=== PATIENT | female | born 1995 ===

== ENCOUNTER 2019-01-29 12:45 | Emergency (ER) | payer SELFPAY ==
--- NOTE | 2019-01-29 13:37 | EDPHYS ---
Physician Documentation [facility] Name: Diana Wayne Age: 23 yrs Sex: Female : 1995 Arrival Date: 01/29/2019 Time: 12:51 Bed 6 Private MD: Unknown, Unknown ED Physician Jefry Cano HPI: 01/29 13:33 This 23 yrs old Female presents to ER via Ambulatory with complaints of Cough, laci Chest Pain, Sore Throat. 13:33 The patient or guardian reports cough, flu symptoms, arthralgias, low-grade fever, laci myalgias. Onset: The symptoms/episode began/occurred 3 day(s) ago. Severity of symptoms: At their worst the symptoms were mild, in the emergency department the symptoms are unchanged. Modifying factors: The symptoms are alleviated by nothing, the symptoms are aggravated by nothing. Associated signs and symptoms: The patient has no apparent associated signs or symptoms. The patient has not experienced similar symptoms in the past. 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 - Ebola Screening: : No symptoms or risks identified at this time. - Social history:: Smoking status: Patient/guardian denies using tobacco. ROS: 13:34 Eyes: Negative for injury, pain, redness, and discharge, ENT: Negative for injury, laci pain, and discharge, Neck: Negative for injury, pain, and swelling, Cardiovascular: Negative for chest pain, palpitations, and edema, Abdomen/GI: Negative for abdominal pain, nausea, vomiting, diarrhea, and constipation, Back: Negative for injury and pain, : Negative for injury, bleeding, discharge, and swelling, MS/Extremity: Negative for injury and deformity, Skin: Negative for injury, rash, and discoloration, Neuro: Negative for headache, weakness, numbness, tingling, and seizure, Psych: Negative for depression, anxiety, suicide ideation, homicidal ideation, and hallucinations, Allergy/Immunology: Negative for hives, rash, and allergies, Endocrine: Negative for neck swelling, polydipsia, polyuria, polyphagia, and marked weight changes, Hematologic/Lymphatic: Negative for swollen nodes, abnormal bleeding, and unusual bruising. 13:34 ENT: Positive for sore throat. 13:34 Respiratory: Positive for cough, with no reported sputum. Exam: 13:34 Constitutional: This is a well developed, well nourished patient who is awake, alert, laci and in no acute distress. Head/Face: Normocephalic, atraumatic. Eyes: Pupils equal round and reactive to light, extra-ocular motions intact. Lids and lashes normal. Conjunctiva and sclera are non-icteric and not injected. Cornea within normal limits. Periorbital areas with no swelling, redness, or edema. Neck: Trachea midline, no thyromegaly or masses palpated, and no cervical lymphadenopathy. Supple, full range of motion without nuchal rigidity, or vertebral point tenderness. No Meningismus. Chest/axilla: Normal chest wall appearance and motion. Nontender with no deformity. No lesions are appreciated. Cardiovascular: Regular rate and rhythm with a normal S1 and S2. No gallops, murmurs, or rubs. Normal PMI, no JVD. No pulse deficits. Respiratory: Lungs have equal breath sounds bilaterally, clear to auscultation and percussion. No rales, rhonchi or wheezes noted. No increased work of breathing, no retractions or nasal flaring. Abdomen/GI: Soft, non-tender, with normal bowel sounds. No distension or tympany. No guarding or rebound. No evidence of tenderness throughout. Back: No spinal tenderness. No costovertebral tenderness. Full range of motion. Skin: Warm, dry with normal turgor. Normal color with no rashes, no lesions, and no evidence of cellulitis. MS/ Extremity: Pulses equal, no cyanosis. Neurovascular intact. Full, normal range of motion. Neuro: Awake and alert, GCS 15, oriented to person, place, time, and situation. Cranial nerves II-XII grossly intact. Motor strength 5/5 in all extremities. Sensory grossly intact. Cerebellar exam normal. Normal gait. Psych: Awake, alert, with orientation to person, place and time. Behavior, mood, and affect are within normal limits. 13:34 ENT: Posterior pharynx: Tonsils: bilaterally enlarged, with erythema, no exudate, Uvula: normal, erythema, that is mild. Vital Signs: 13:01 BP 112 / 74; Pulse 90; Resp 20; Temp 99.7; Pulse Ox 99% on R/A; Weight 63.5 kg; Height aj 5 ft. 4 in. (162.56 cm); 13:01 Body Mass Index 24.03 (63.50 kg, 162.56 cm) MDM: 13:08 Patient medically screened. [facility] 13:34 Data reviewed: vital signs, nurses notes. [facility] 01/29 13:33 Order name: PO challenge; Complete Time: 13:55 [facility] Administered Medications: 13:53 Drug: Rocephin (cefTRIAXone) 1 grams Route: IM; Site: right vastus lateralis; ph 14:09 Follow up: Response: No adverse reaction ph 13:53 Drug: Zithromax 500 mg Route: PO; ph 14:09 Follow up: Response: No adverse reaction ph Disposition: 01/29/19 13:37 Discharged to Home. Impression: Fever, unspecified, Bronchitis, not specified as acute or chronic, Acute pharyngitis. - Condition is Stable. - Discharge Instructions: Acute Bronchitis, Adult, Fever, Adult, Pharyngitis, Upper Respiratory Infection, Adult, Fever, Pediatric, Cool Mist Vaporizer, Upper Respiratory Infection, Adult, [id number], Pharyngitis, [id number], Cough, Adult, Sore Throat, [id number], Fever, Adult, [id number]-[id number]. - Prescriptions for Bromfed DM 2- 30-10 mg/5 mL Oral syrup - take 10 milliliter by ORAL route every 6 hours; 180 milliliter. Zithromax 500 mg Oral Tablet - take 1 tablet by ORAL route once daily for 4 days; 4 tablet. - Medication Reconciliation Form, Thank You Letter, Antibiotic Education, Prescription Opioid Use, Work release form form. - Follow up: Private Physician; When: 2 - 3 days; Reason: Recheck today's complaints, Continuance of care, Re-evaluation by your physician. - Problem is new. - Symptoms have improved. Signatures: Ana Romero, RN RN Jefry Bailon MD MD cha Hall, Patricia, RN RN ph Corrections: (The following items were deleted from the chart) 14:16 13:37 01/29/2019 13:37 Discharged to Home. Impression: Fever, unspecified; Bronchitis, ph not specified as acute or chronic; Acute pharyngitis. Condition is Stable. Forms are Medication Reconciliation Form, Thank You Letter, Antibiotic Education, Prescription Opioid Use. Follow up: Private Physician; When: 2 - 3 days; Reason: Recheck today's complaints, Continuance of care, Re-evaluation by your physician. Problem is new. Symptoms have improved. laci
--- NOTE | 2019-01-29 13:37 | ER ---
Nurse's Notes [facility] Name: Diana Wayne Age: 23 yrs Sex: Female : 1995 Arrival Date: 01/29/2019 Time: 12:51 Bed 6 Private MD: Unknown, Unknown Diagnosis: Fever, unspecified;Bronchitis, not specified as acute or chronic;Acute pharyngitis Presentation: 01/29 12:59 Presenting complaint: Patient states: Cough, sore throat, body aches since 3 days ago aj with fever. Seen last night in [place] at ER and treated for strep throat. Patient reports not feeling better. Transition of care: patient was not received from another setting of care. Onset of symptoms was January 26, 2019. Risk Assessment: Do you want to hurt yourself or someone else? Patient reports no desire to harm self or others. Initial Sepsis Screen: Does the patient meet any 2 criteria? No. Patient's initial sepsis screen is negative. Does the patient have a suspected source of infection? No. Patient's initial sepsis screen is negative. Care prior to arrival: None. 12:59 Method Of Arrival: Ambulatory 12:59 Acuity: ANDERSON 4 Triage Assessment: 13:01 General: Appears in no apparent distress. uncomfortable, Behavior is calm, cooperative, aj appropriate for age. Pain: Complains of pain in chest. Neuro: Level of Consciousness is awake, alert, obeys commands, Oriented to person, place, time, situation, Appropriate for age. Respiratory: Reports cough that is persistent Airway is patent Respiratory effort is even, unlabored, Respiratory pattern is regular, symmetrical. Derm: Skin is intact, is healthy with good turgor, Skin is pink, warm \T\ dry. normal. 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 - Ebola Screening: : No symptoms or risks identified at this time. - Social history:: Smoking status: Patient/guardian denies using tobacco. Screenin:19 Abuse screen: Denies threats or abuse. Denies injuries from another. Nutritional ph screening: No deficits noted. Tuberculosis screening: No symptoms or risk factors identified. Fall Risk None identified. Assessment: 13:34 General: Appears in no apparent distress. uncomfortable, slender, Behavior is calm, ph cooperative, appropriate for age, Reports fever for 2-3 days. Pain: Complains of pain in chest and throat. Neuro: Level of Consciousness is awake, alert, obeys commands, Oriented to person, place, time, situation. Cardiovascular: Reports chest pain, fatigue, Denies nausea, palpitations, shortness of breath, vomiting, Capillary refill < 3 seconds in bilateral fingers Patient's skin is warm and dry. Chest pain is aggravated by breathing. Respiratory: Reports cough that is pain with cough Airway is patent Respiratory effort is even, unlabored, Respiratory pattern is regular, symmetrical. GI: Reports nausea, Patient currently denies abdominal pain, vomiting. EENT: Throat is reddened has enlarged tonsils bilaterally Reports pain when swallowing. Derm: Skin is intact, Skin is pink, warm \T\ dry. Musculoskeletal: Circulation, motion, and sensation intact. Range of motion: intact in all extremities. 13:54 Reassessment: Patient appears in no apparent distress at this time. Patient and/or ph family updated on plan of care and expected duration. Pain level reassessed. Patient is alert, oriented x 3, equal unlabored respirations, skin warm/dry/pink. D/C pending 15 min shot time. Vital Signs: 13:01 BP 112 / 74; Pulse 90; Resp 20; Temp 99.7; Pulse Ox 99% on R/A; Weight 63.5 kg; Height aj 5 ft. 4 in. (162.56 cm); 13:01 Body Mass Index 24.03 (63.50 kg, 162.56 cm) ED Course: 12:51 Patient arrived in ED. tw3 12:52 Unknown, Unknown is Private Physician. tw3 13:01 Triage completed. aj 13:01 Arm band placed on left wrist. Patient placed in an exam room. aj 13:08 Jefry Cano MD is Attending Physician. [facility] 13:19 Krista Delgadillo, REGAN is Primary Nurse. ph 13:20 Patient has correct armband on for positive identification. Bed in low position. Call light in reach. Side rails up X 1. Pulse ox on. NIBP on. 13:55 No provider procedures requiring assistance completed. Patient did not have IV access ph during this emergency room visit. Administered Medications: 13:53 Drug: Rocephin (cefTRIAXone) 1 grams Route: IM; Site: right vastus lateralis; ph 14:09 Follow up: Response: No adverse reaction ph 13:53 Drug: Zithromax 500 mg Route: PO; ph 14:09 Follow up: Response: No adverse reaction ph Outcome: 13:37 Discharge ordered by MD. aguero 14:16 Discharged to home ambulatory. ph 14:16 Condition: good 14:16 Discharge instructions given to patient, Instructed on discharge instructions, follow up and referral plans. medication usage, Demonstrated understanding of instructions, follow-up care, medications, Prescriptions given X 2. 14:16 Patient left the ED. ph Signatures: Ana Romero, RN Jefyr Reed MD MD cha Hall, Patricia, RN RN ph Wade, Ghazala tw3
[2019-01-29] MEDS ORDERED: CEFTRIAXONE 1000 MG/VIAL ONE (14:03)
[2019-01-29] MEDS ORDERED: WATER FOR INJ,STERILE 10 ML ONE (14:03)
[2019-01-29] MEDS ORDERED: AZITHROMYCIN 250 MG TAB ONE (14:03)
== END 2019-01-29 14:16 | disposition home or self-care (01) ==
LOC: ER 12:45
DX: J40 Bronchitis, not specified as acute or chronic (principal); J02.9 Acute pharyngitis, unspecified
CPT/HCPCS: 96372; 99283

== ENCOUNTER 2020-01-11 21:18 | Emergency (ER) | payer OTHER, SELFPAY ==
--- OUTSIDE RECORDS SUMMARY | 2020-01-11 21:21 | XMS REPORT | Encounter Summary ---
:1995 Author Care Team Providers Name Role Phone Aura Saab Primary Care Provider [phone] Reason for Visit Amenorrhea Instructions 1. Amenorrhea US, obstetric, transvagina l 2. Mild hyperemesis-not delivere d Reglan 10 mg tablet Discussion Note: None recorded.Patient educational handouts: No information available. Plan of Care Reminders Provider Appointments Follow up 01/22/2020 Khoa adam 8:45AM Lance Machuca MD Transvaginal on or around So [facility] 01/24/2020 Lab None recorded. Referral None recorded. Procedures None recorded. Surgeries None recorded. Imaging US, Obstetric, 01/10/2020 In -House Transvaginal Results Medications Name Start Date Reglan 10 mg tablet Take 1 tablet 4 times a day by oral route for 7 days. Medications Administered None recorded. Vitals Height Weight BMI Blood Pressure 5 ft 4 in 138 lbs 23.7 kg/m2 103/69 mm[Hg] Results Lab Results Date Name Specimen Result Interpretation Description Value Range Status Address US, Obstetric, No observation In-House Transvaginal recorded. R esults: For Internal U se Only Allergies Code Code System Name Reaction Severity Status Onset NKDA Problems Name Status Onset Date Source Active 01/10/2020 Hyperthyroidism Active Encounter Procedures Date Name Performed by 01/10/2020 US, Obstetric, Transvaginal [place] [address] Vaccine List None recorded. Social History Tobacco Smoking Status Never Smoker Past Encounters 01/10/2020 Amenorrhea; Mild Hyperemesis-not Deliver ed Peggy Machuca MD: [address], [place] [address], Ph. [phone] History of Present Illness Amenorrhea Reported By: Patient Note: 24 yo who presents because of not having had a period and a Positive test at home. No vaginal bleeding no abdominal cramping. US today shows a FP and GS. The pole measuring 5.5 w does not exhibit a cardiac flicker. the GX is measuring abotu 9 w Gestation. 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 Reported By: Patient Constitutional: Constitutional: no fatigue, no fever, no significant weight gain, no significant weight loss Skin: Skin: no abnormal moles, no rashes Eyes: Eyes: no irritation, no visi on changes ENMT: ENMT: no hearing loss, no ea r pain, no nose/sinus problems, no sore throat, no snoring, no dry m outh, no mouth ulcers Respiratory: Respiratory: no dyspnea / sh ortness of breath, no cough, no sputum production, no hemoptysis, n o wheezing Cardiovascular: Cardiovascular: no chest rupert n, no palpitations, no orthopnea Gastrointestinal: Gastrointestinal: no heartbu rn, no dysphagia, no nausea, no vomiting, no abdominal pain, no bowel movement changes, no diarrhea, no constipation, n o rectal bleeding Genitourinary: Genitourinary: no hematuria, no abnormal bleeding, no flank pain, no trouble urinating, no inc ontinence, no rash, no lesion, no discharge, no vaginal odor, no vaginal itching Endocrine: Menstrual: no menstrual prob lems, no PMDD symptoms. Menopausal: no menopausal symptoms. Sexual: no sexual problems Musculoskeletal: Musculoskeletal: no muscle a ches, no muscle weakness, no arthralgias/joint pain, no b ack pain Neurological: Neurologic: no headaches, no dizziness, no LOC, no weakness, no numbness, no seizures Psychological: Psych: no depression, no alc oholism, no sleep disturbances Physical Exam /[place] Department Operator Problem, Initial OB Reported By: Patient Psychiatric: Orientation: to time, to lalita ce, to person. Mood and Affect: active and alert, normal mood, norm al affect Female Genitalia: Uterus: ; See US report
--- OUTSIDE RECORDS SUMMARY | 2020-01-11 21:21 | XMS REPORT ---
:1995 Author Organization [facility] t Address [address] [place] [address] Care Team Providers Name Role Phone Unavailable Unavailable Unavailable Problems Condition Condition Condition Status Onset Resolution Last Treating Co mments Source Name Details Category Date Date Treatment Clinician Date Problem Active [facility] 01[facility]09 [facility] 00:00: Medical 00 Group Hyperthyro Hyperthyro Problem Active [facility] Allergies, Adverse Reactions, Alerts This patient has no known allergies or adverse reactions. Social History Smoking Status Start Date Stop Date Source Never Smoker [facility] Medications Ordered Filled Start Stop Current Ordering Indication Dosage Frequency Signature Comments Components Source Medication Medication Date Date Medication? Clinician (SIG) Name Name Reglan 10 Reglan 10 No 1 QID Reglan 10 [facility] mg tablet mg tablet mg tablet da Take 1 Take 1 Take 1 Medical tablet 4 tablet 4 tablet 4 Renee up times a day times a day times a by oral by oral day by route for 7 route for 7 oral route days. days. for 7 days. Vital Signs Vital Name Observation Time Observation Value Comments Source BP Diastolic 2020-01-10 00:00:00 69 mm[Hg] [facility] Height 2020-01-10 00:00:00 64 [in_i] [facility] BMI (Body Mass 2020-01-10 00:00:00 23.7 kg/m2 [facility] Medical Index) Group BP Systolic 2020-01-10 00:00:00 103 mm[Hg] [facility] Body Weight 2020-01-10 00:00:00 138 [lb_av] [facility] BP Diastolic 2019-10-30 00:00:00 65 mm[Hg] [facility] Height 2019-10-30 00:00:00 64 [in_i] [facility] BMI (Body Mass 2019-10-30 00:00:00 24.2 kg/m2 [facility]) [facility] BP Systolic 2019-10-30 00:00:00 130 mm[Hg] [facility] Body Weight 2019-10-30 00:00:00 141.2 [lb_av] [facility] Procedures Procedure Date / Time Performing Clinician Source Performed ULTRASOUND, 2020-01-10 00:00:00 [facility] UTERUS REAL TIME WITH Group IMAGE DOCUMENTAITON, TRANSVAGINAL Plan of Care Planned Activity Planned Date Details Comments Source Diagnostic Test 2019-10-30 cytology report, [facility] Pending 00:00:00 thin prep, smear or [facility] scraping, cervical [facility] or vaginal [code = cytology report, thin prep, smear or scraping, cervical or vaginal] Diagnostic Test 2019-10-30 HIV 1+2 AB + HIV 1 [facility] Pending 00:00:00 p24 Ag, qualitative [facility] immunoassay, serum [facility] [code = HIV 1+2 AB + HIV 1 p24 Ag, qualitative immunoassay, serum] Diagnostic Test 2019-10-30 RPR (rapid plasma [facility] Pending 00:00:00 reagin), serum [code [facility] = RPR (rapid plasma [facility] reagin), serum] Diagnostic Test 2019-10-30 HBsAg (hepatitis B [facility] Pending 00:00:00 surface Ag), EIA, [facility] serum [code = HBsAg [facility] (hepatitis B surface Ag), EIA, serum] Future Appointment 2020-01-24 Sonogram, [address] [facility] 00:00:00 [facility] [address]; , [place] [address] Future Appointment 2020-01-22 Franklin Pardo 08:45:[address] [place] [address] [address]; , [place] [address] Encounters Start End Encounter Admission Attending Care Care Encounter Source Date/Time Date/Time Type Type Clinicians Facility Department ID 2020-01-10 2020-01-10 Peggy [facility] [place] - [id number] [facility] 00:00:00 00:00:00 Lance Rodríguez [facility] j[facility] MD: [address] [facility] [address], [place] [address] , Ph. [phone] 2019-10-30 2019-10-30 Kelley SUAREZ [place] - [id number] [facility] 00:00:00 00:00:00 Jen Saucedo, [facility] ACADEMIC HOSPITALIST: [address], [facility] [place] [address] Alessio garcia , Ph. Results This patient has no known results.
--- OUTSIDE RECORDS SUMMARY | 2020-01-11 21:21 | XMS REPORT | Encounter Summary ---
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 Contraception care management cytology report, thin prep , smear or scraping, cervical or vaginal HIV 1+2 AB + HIV 1 p24 Ag, qualitative immunoassay, serum RPR (rapid plasma reagin), serum HBsAg (hepatitis B surface Ag), EIA, serum Discussion Note Breast and pelvic exam performed. P ap obtained. Exposure labs drawn. Will notify patient with results. RTC in 1 year for wwe or prn. Patient may start OTC prenatals. ml Patient educational handouts: No information available. Plan of Care Reminders Provider Appointments None recorded. Lab Cytology [facility] Report, Thin Prep, Smear 10/30/2019 or Scraping, Cervical or Vaginal HIV 1+2 AB + [facility] HIV 1 P24 Ag, Qualitative 10/30/2019 Immunoassay, Serum RPR (Rapid [facility] Plasma Reagin), Serum 10/30/2019 HBsAg [facility] (Hepatitis B Surface Ag), 10/30/2019 EIA, Serum Referral None recorded. Procedures None recorded. Surgeries None recorded. Imaging None recorded. Medications No Medications Reported Medications Administered None recorded. Vitals Height Weight BMI Blood Pressure 5 ft 4 in 141.2 lbs 24.2 kg/m2 130/65 mm[Hg] Results Lab Results None recorded. Allergies Code Code System Name Reaction Severity Status Onset NKDA Problems No Known Problems Procedures None recorded. Vaccine List None recorded. Social History Tobacco Smoking Status Never Smoker Past Encounters 10/30/2019 Contraception Care Management Kelley Guillen, VISITOR SERVICES ASSISTANT: [address], [place] [address], Ph. History of Present Illness Note: <p>Patient is 24 yo female in for wwe. Last pap- 2014. lmp- 10/17/19. Requesting exposure labs today. Is on WHP. Doesnt want control, trying to conceive- Neg PMH. AR/ml</p> Review of Systems Comprehensive [facility]YN DiClemen te Reported By: Patient Constitutional: Constitutional: no fatigue, no fever, no significant weight gain, no significant weight loss, (normal) appetite Skin: Skin: no abnormal moles, no rashes, no itching Eyes: Eyes: no irritation, no visi on changes, does not wear glasses or contacts ENMT: ENT: no hearing loss, no ear pain, no nose/sinus problems, no sore throat Respiratory: Respiratory: no dyspnea / sh ortness of breath, no wheezing, no cough Cardiovascular: Cardiovascular: no chest rupert n, no palpitations, no orthopnea, no leg swelling Gastrointestinal: Gastrointestinal: no nausea, no vomiting, no diarrhea, no constipation, no heartburn, no abdominal pain Musculoskeletal: Musculoskeletal: no muscle a ches, no arthralgias/joint pain, no back pain Hematologic/Lymphatic: Hematologic/Lymphatic no bru ising, (normal) excessive bleeding Genitourinary: Urinary symptoms no urinary urgency, no urinary frequency, no dysuria, no urinary incontin ence, no flank pain. Menstrual: no menstrual problems, no exces sive bleeding during period (menorrhagia), no pain with periods (dysmenorrhea), no PMDD symptoms. Gynecologic no vag inal discharge, no pelvic pain, no vaginal itching, no genital lesion breast symptoms: Breast no breast lump, no br east pain, no breast tenderness, no nipple discharge Endocrine: Menopausal: no menopausal sy mptoms Neurological: Neurologic: no weakness, no dizziness, no spinning dizziness (vertigo), no headaches Psychological: Psych: no depression, no sle ep disturbances, no anxiety Allergic/Immunologic: Allergy/Immunologic: no runn y nose, no itching of eyes/throat, no hives, no frequent sneezi ng Physical Exam Annual Management Tech Exam DiClemente Reported By: Patient Constitutional: General Appearance: healthy- appearing, well-nourished, well-developed Psychiatric: Orientation: to time, to lalita ce, to person. Mood and Affect: active and alert, normal mood, norm al affect Skin: Appearance: no rashes, no le sions Neck: Neck: supple, trachea midlin e, no masses, FROM. Thyroid: no enlargement, no nodules, non -tender Lungs: Respiratory Effort: no inter costal retractions, no accessory muscle usage. Auscultation: clear t o auscultation, no wheezing, no rales/crackles, no rhonchi Cardiovascular: Auscultation: RRR, no murmur . Peripheral Vascular: no LLE edema, no RLE edema, no varicosities, no calf tenderness, no palpable cords, pedal pulses intact Abdomen: Auscultation/Inspection/Palp ation: normal bowel sounds, soft, non-distended, no tenderness , no hepatomegaly, no splenomegaly, no masses, no CVA tenderness. H ernia: none palpated Breast: Inspection/Palpation: no ski n changes, no abnormal secretions, nipple appearance normal, no tenderness, no distinct masses Female Genitalia: Vulva: no masses, no atrophy , no lesions. Vagina: no tenderness, no erythema, no abnormal vagina l discharge, no vesicle(s) or ulcers, no cystocele, no rectocele, normal atrophy. Cervix: grossly normal, no discharge, no cervical mo tion tenderness, sample taken for a Pap smear. Uterus: normal size, normal shape, midline, no uterine prolapse, mobile, non-tender . Bladder/Urethra: normal meatus, no urethral discharge, no ureth ral mass, bladder non distended. Adnexa/Parametria: no parame trial tenderness, no parametrial mass, no adnexal tenderness, no ov radha mass Lymph Nodes: Palpation: non-palpable subm andibular nodes, non-palpable axillary nodes, non-palpable inguinal nodes Rectal Exam: Rectum: normal perianal skin , normal sphincter tone, no hemorrhoids, no masses, heme negative stool
[2020-01-11 23:41] LABS: Absolute Lymphocytes (CBC) 2.5 K/uL (0.7-4.9); Basophils % 0.8 % (0-1.3); Hematocrit 36.9 % (36.0-45.0); Lymphocytes % 23.7 % (15.3-44.8); MPV 7.8 fL (7.6-11.3); RBC Red Blood Cell Count 4.35 M/uL (3.86-4.86)
[2020-01-11] MEDS ORDERED: NA CHLORIDE 0.9% 1,000 ML ONE (23:53)
[2020-01-11 23:57] LABS: Urine Blood 1+ (NEG); Urine Glucose NEGATIVE (NEG); Urine Protein NEGATIVE (NEG); Urine Specific Gravity >1.030 (1.005-1.030); Urine pH 5.5 (5.0-7.0)
[2020-01-11 23:58] LABS: Urine Specific Gravity >1.030 (1.005-1.030)
[2020-01-12 00:20] LABS: BUN Blood Urea Nitrogen 9 mg/dL (7-18); Bicarbonate 24 mmol/L (21-32); Glucose Level 95 mg/dL (74-106); HCG, Quantitative > 200000 mIU/mL (1-3); Sodium Level 138 mmol/L (136-145)
--- NOTE | 2020-01-12 00:47 | ER ---
Nurse's Notes [facility] Name: Diana Wayne Age: 24 yrs Sex: Female : 1995 Arrival Date: 01/11/2020 Time: 21:19 Bed 20 Private MD: Diagnosis: Abdominal tenderness;Threatened ;Incomplete spontaneous without complication Presentation: 01/10 21:36 Chief complaint: Patient states: Abdominal cramps and spotting since yesterday. Reports ca1 N/V. Coronavirus screen: Proceed with normal triage. Patient denies a cough. Patient denies shortness of breath or difficulty breathing. Patient denies measured and/or subjective temperature greater than 100.4F prior to today's visit. Patient denies travel on a cruise ship or to a country the [facility] currently lists as an affected area. Patient denies contact with known and/or suspected case of COVID-19. Ebola Screen: Patient negative for fever greater than or equal to 101.5 degrees Fahrenheit, and additional compatible Ebola Virus Disease symptoms Patient denies exposure to infectious person. Patient denies travel to an Ebola-affected area in the 21 days before illness onset. No symptoms or risks identified at this time. Initial Sepsis Screen: Does the patient meet any 2 criteria? No. Patient's initial sepsis screen is negative. Does the patient have a suspected source of infection? No. Patient's initial sepsis screen is negative. Risk Assessment: Do you want to hurt yourself or someone else? Patient reports no desire to harm self or others. Onset of symptoms was January 11, 2020. 21:36 Method Of Arrival: Ambulatory ca1 21:36 Acuity: ANDERSON 3 ca1 Triage Assessment: 22:50 General: Appears in no apparent distress. Behavior is anxious, crying. Pain: Complains vc of pain in suprapubic area. GI: No signs and/or symptoms were reported involving the gastrointestinal system. 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 - Social history:: Smoking status: Patient denies any tobacco usage or history of. Screenin:50 Abuse screen: Denies threats or abuse. Nutritional screening: No deficits noted. vc Tuberculosis screening: No symptoms or risk factors identified. Fall Risk None identified. Assessment: 22:50 GI: Bowel sounds present X 4 quads. Abd is soft Abd is non tender. vc Vital Signs: 21:36 Pulse 77; Resp 16 S; Temp 97.7(TE); Pulse Ox 99% on R/A; Weight 62.6 kg (R); Height 5 ca1 ft. 4 in. (162.56 cm) (R); Pain 5/10; 23:00 BP 112 / 61; Pulse 63; Resp 17; Pulse Ox 98% on R/A; vc 01/11 00:00 BP 103 / 58; Pulse 60; Resp 16; Pulse Ox 100% on R/A; vc 01:00 BP 98 / 61; Pulse 72; Resp 16; Pulse Ox 99% on R/A; vc 01/10 21:36 Body Mass Index 23.69 (62.60 kg, 162.56 cm) ca1 ED Course: 01/10 21:19 Patient arrived in ED. cl3 21:39 Triage completed. ca1 21:39 Arm band placed on right wrist. ca1 22:40 Patient has correct armband on for positive identification. Bed in low position. Call vc light in reach. Pulse ox on. NIBP on. 22:42 Jefry Cano MD is Attending Physician. laci 22:51 Carolyn Barrera, RN is Primary Nurse. vc 01/11 00:59 No provider procedures requiring assistance completed. vc 01:09 Transvaginal Ob In Process Unspecified. EDMS 01:46 IV discontinued, intact, bleeding controlled, No redness/swelling at site. Pressure vc dressing applied. Administered Medications: 01/10 23:54 Drug: NS 0.9% 1000 ml Route: IV; Rate: 1 bolus; Site: right antecubital; vc 01/11 01:03 Follow up: Response: No adverse reaction; IV Intake: 1000ml vc 01:04 Follow up: IV Status: Completed infusion; IV Intake: 1000ml vc Intake: 01:03 IV: 1000ml; Total: 1000ml. vc 01:04 IV: 1000ml; Total: 2000ml. vc Outcome: 00:44 Discharge ordered by . laci 01:46 Discharged to home ambulatory. vc 01:46 Condition: good 01:46 Discharge instructions given to patient, Instructed on discharge instructions, follow up and referral plans. medication usage, Demonstrated understanding of instructions, follow-up care, medications, Prescriptions given X 1. 01:47 Patient left the ED. vc Signatures: Dispatcher [employer] EDMS Jefry Cano MD MD cha Acob, Cheryl RN RN Orin Cote cl3 Carolyn Barrera RN RN vc
--- NOTE | 2020-01-12 00:47 | EDPHYS ---
Physician Documentation [facility] Name: Diana Wayne Age: 24 yrs Sex: Female : 1995 Arrival Date: 01/11/2020 Time: 21:19 Bed 20 Private MD: ED Physician Jefry Cano HPI: 01/10 23:32 This 24 yrs old Female presents to ER via Ambulatory with complaints of laci Abdominal Cramping, 8 Weeks . 23:32 The patient presents to the emergency department with abdominal pain, of the suprapubic laci area, vaginal bleeding, that is light. The estimated gestational age is 6 weeks. course: care: private OB physician, in [facility]. Previous pregnancies: in previous pregnancies patient has had vaginal delivery. Associated signs and symptoms: The patient has no apparent associated signs or symptoms. The patient has not experienced similar symptoms in the past. 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 - Social history:: Smoking status: Patient denies any tobacco usage or history of. ROS: 23:34 Constitutional: Negative for fever, chills, and weight loss, Eyes: Negative for injury, laci pain, redness, and discharge, ENT: Negative for injury, pain, and discharge, Neck: Negative for injury, pain, and swelling, Cardiovascular: Negative for chest pain, palpitations, and edema, Respiratory: Negative for shortness of breath, cough, wheezing, and pleuritic chest pain, Abdomen/GI: Negative for abdominal pain, nausea, vomiting, diarrhea, and constipation, Back: Negative for injury and pain, MS/Extremity: Negative for injury and deformity, Skin: Negative for injury, rash, and discoloration, Neuro: Negative for headache, weakness, numbness, tingling, and seizure, Psych: Negative for depression, anxiety, suicide ideation, homicidal ideation, and hallucinations, Allergy/Immunology: Negative for hives, rash, and allergies, Endocrine: Negative for neck swelling, polydipsia, polyuria, polyphagia, and marked weight changes, Hematologic/Lymphatic: Negative for swollen nodes, abnormal bleeding, and unusual bruising. 23:34 : Positive for pelvic pain, vaginal bleeding. Exam: 23:34 Constitutional: This is a well developed, well nourished patient who is awake, alert, laci and in no acute distress. Head/Face: Normocephalic, atraumatic. Eyes: Pupils equal round and reactive to light, extra-ocular motions intact. Lids and lashes normal. Conjunctiva and sclera are non-icteric and not injected. Cornea within normal limits. Periorbital areas with no swelling, redness, or edema. ENT: Nares patent. No nasal discharge, no septal abnormalities noted. Tympanic membranes are normal and external auditory canals are clear. Oropharynx with no redness, swelling, or masses, exudates, or evidence of obstruction, uvula midline. Mucous membranes moist. Neck: Trachea midline, no thyromegaly or masses palpated, and no cervical lymphadenopathy. Supple, full range of motion without nuchal rigidity, or vertebral point tenderness. No Meningismus. Chest/axilla: Normal chest wall appearance and motion. Nontender with no deformity. No lesions are appreciated. Cardiovascular: Regular rate and rhythm with a normal S1 and S2. No gallops, murmurs, or rubs. Normal PMI, no JVD. No pulse deficits. Respiratory: Lungs have equal breath sounds bilaterally, clear to auscultation and percussion. No rales, rhonchi or wheezes noted. No increased work of breathing, no retractions or nasal flaring. Abdomen/GI: Soft, non-tender, with normal bowel sounds. No distension or tympany. No guarding or rebound. No evidence of tenderness throughout. Back: No spinal tenderness. No costovertebral tenderness. Full range of motion. Skin: Warm, dry with normal turgor. Normal color with no rashes, no lesions, and no evidence of cellulitis. MS/ Extremity: Pulses equal, no cyanosis. Neurovascular intact. Full, normal range of motion. Neuro: Awake and alert, GCS 15, oriented to person, place, time, and situation. Cranial nerves II-XII grossly intact. Motor strength 5/5 in all extremities. Sensory grossly intact. Cerebellar exam normal. Normal gait. Psych: Awake, alert, with orientation to person, place and time. Behavior, mood, and affect are within normal limits. Vital Signs: 21:36 Pulse 77; Resp 16 S; Temp 97.7(TE); Pulse Ox 99% on R/A; Weight 62.6 kg (R); Height 5 ca1 ft. 4 in. (162.56 cm) (R); Pain 5/10; 23:00 BP 112 / 61; Pulse 63; Resp 17; Pulse Ox 98% on R/A; vc 01/11 00:00 BP 103 / 58; Pulse 60; Resp 16; Pulse Ox 100% on R/A; vc 01:00 BP 98 / 61; Pulse 72; Resp 16; Pulse Ox 99% on R/A; vc 01/10 21:36 Body Mass Index 23.69 (62.60 kg, 162.56 cm) ca1 MDM: 01/10 22:42 Patient medically screened. [facility] 23:35 Differential diagnosis: ectopic , urinary tract infection. Data reviewed: [facility] vital signs, nurses notes, lab test result(s), radiologic studies, ultrasound. Data interpreted: jumbo operator: not applicable for this patient encounter. Pulse oximetry: on room air is 99 %. Counseling: I had a detailed discussion with the patient and/or guardian regarding: the historical points, exam findings, and any diagnostic results supporting the discharge/admit diagnosis, lab results, radiology results, the need for outpatient follow up, for definitive care, an OB/Gyne specialist. ED course: told in [place], no fht's. 01/11 00:07 Test interpretation: by ED physician or midlevel provider: usg , q hcg, exam evaluated. [facility] 01:00 ED course: pt explained all results, reassured. [facility] 01/10 22:43 Order name: Quantitative Hcg; Complete Time: 00:43 [facility] 01/10 22:43 Order name: Abo/rh Typing; Complete Time: 00:06 [facility] 01/10 22:43 Order name: Basic Metabolic Panel; Complete Time: 00:43 [facility] 01/10 22:43 Order name: CBC with Diff; Complete Time: 00:06 [facility] 01/10 22:43 Order name: Urine Culture [facility] 01/10 23:45 Order name: Urine Dipstick--Ancillary (enter results); Complete Time: 00:06 [facility] 01/10 22:43 Order name: Urine Test (obtain specimen); Complete Time: 23:37 [facility] 01/10 22:43 Order name: IV Saline Lock; Complete Time: 23:37 [facility] 01/10 22:43 Order name: Labs collected and sent; Complete Time: 23:37 [facility] 01/10 22:43 Order name: NPO; Complete Time: 23:37 [facility] 01/10 22:43 Order name: US Transvaginal Ob [facility] 01/10 23:46 Order name: Urine --Ancillary (enter results); Complete Time: 00:06 [facility] 01/11 01:07 Order name: ABO/RH no charge [facility] 01/10 22:43 Order name: Urine Dipstick-Ancillary (obtain specimen); Complete Time: 23:38 [facility] Administered Medications: 01/10 23:54 Drug: NS 0.9% 1000 ml Route: IV; Rate: 1 bolus; Site: right antecubital; vc 01/11 01:03 Follow up: Response: No adverse reaction; IV Intake: 1000ml vc 01:04 Follow up: IV Status: Completed infusion; IV Intake: 1000ml vc Disposition: 01/12/20 00:44 Discharged to Home. Impression: Abdominal tenderness, Threatened , Incomplete spontaneous without complication. - Condition is Stable. - Discharge Instructions: Incomplete Miscarriage, Miscarriage, Threatened Miscarriage, Vaginal Bleeding During , First Trimester, Threatened Miscarriage, [id number], Pelvic Rest, Miscarriage, [id number], Vaginal Bleeding During , First Trimester, [id number]. - Prescriptions for Vitamin 27- 0.8 mg Oral Tablet - take 1 tablet by ORAL route once daily; 30 tablet. - Work release form, Medication Reconciliation Form, Thank You Letter, Antibiotic Education, Prescription Opioid Use form. - Follow up: Private Physician; When: 2 - 3 days; Reason: Recheck today's complaints, Continuance of care, Re-evaluation by your physician. - Problem is new. - Symptoms have improved. Signatures: Dispatcher [employer] EDNH Jefry Cano MD MD cha Acob, Cheryl RN Carolyn Poon RN RN vc Corrections: (The following items were deleted from the chart) 01:47 00:44 01/12/2020 00:44 Discharged to Home. Impression: Abdominal tenderness; Threatened vc ; Incomplete spontaneous without complication. Condition is Stable. Discharge Instructions: Incomplete Miscarriage, Miscarriage, Threatened Miscarriage, Vaginal Bleeding During , First Trimester, Threatened Miscarriage, [id number], Pelvic Rest, Miscarriage, [id number], Vaginal Bleeding During , First Trimester, [id number]. Prescriptions for Vitamin 27-0.8 mg Oral Tablet - take 1 tablet by ORAL route once daily; 30 tablet. and Forms are Medication Reconciliation Form, Thank You Letter, Antibiotic Education, Prescription Opioid Use. Follow up: Private Physician; When: 2 - 3 days; Reason: Recheck today's complaints, Continuance of care, Re-evaluation by your physician. Problem is new. Symptoms have improved. laci
[2020-01-12 02:02] VITALS: TEMP 97.7
[2020-01-12 02:07] VITALS: BP 98/61; O2SAT 99
--- NOTE | 2020-01-12 03:18 | RAD REPORT ---
EXAM DESCRIPTION: US - Transvaginal OB - 01/12/2020 12:53 am CLINICAL HISTORY: ABD CRAMPING, COMPARISON: No comparisons TECHNIQUE: Endovaginal sonography performed. FINDINGS: An irregularly-shaped fluid collection in the fundal portion of the endometrial cavity is present. This is presumed to be a gestational sac. This fluid collection contains no yolk sac or feta l pole. Average sac diameter corresponds to a 9 week 6 day age. No hematoma or other focal endometria l finding. Uterus is normal in some is. No myometrial mass. No blood or fluid in the cul de sac. Normal size right ovary is present containing a small 15 millimeter cyst. No right adnexal mass seen. Left ovary is obscured by bowel. No left adnexal mass. IMPRESSION: A 9 week 6 day irregular gestational sac is present. No yolk sac or pole. No right ovary or right adnexal abnormality. Left ovary obscured by bowel. No left adnexal mass.
== END 2020-01-12 01:47 | disposition home or self-care (01) ==
LOC: ER 21:18
DX: O03.4 Incomplete spontaneous abortion without complication (principal); Z3A.01 Less than 8 weeks gestation of pregnancy
CPT/HCPCS: 87088; 85025; 87086; 80048; 36415; 86900; 81025; 86901; 84702; 81003; 76817; 96360; 99284; J7030